=== PATIENT | male | born 1995 | race Caucasian/White ===

== ENCOUNTER 2022-12-22 08:17 | Emergency (ER) | payer OTHER, SELFPAY ==
[2022-12-22 08:30] VITALS: BP 116/75; PULSE 84; RESP 16; TEMP 36.8; O2SAT 99
--- NOTE | 2022-12-22 08:42 | ED.URI ---
HPI - URI/Sore Throat General Chief Complaint: Upper Respiratory Infection Stated Complaint: Sore Throat,Lt Ear Irritation,Congestion Time Seen by Provider: 12/22/22 08:33 Source: patient Mode of arrival: ambulatory Limitations: no limitations History of Present Illness HPI Narrative: Patient presents today with 2 day history of sore throat and nasal congestion with a left ear congestion since last night and slight cough. States sore throat has been improving since onset. Currently rates his pain 3/10. He has been taking Claritin for his seasonal allergies and Mucinex for his current symptoms without relief. States his seasonal allergies have never been, ?this bad. ? Denies shortness of breath or difficulty swallowing. Related Data Home Medications Medication Instructions Recorded Confirmed loratadine 10 mg tablet (Claritin) 10 mg PO DAILY 12/22/22 12/22/22 Allergies Allergy/AdvReac Type Severity Reaction Status Date / Time No Known Allergies Allergy Verified 12/22/22 08:25 Review of Systems Review of Systems: CONSTITUTIONAL: Denies body aches, fever, chills, or sweats. EYES: Denies visual changes, redness, or discharge. ENT: Denies rhinorrhea. + sore throat, congestion, left ear pressure CARDIOVASCULAR: Denies chest pain, palpitations, or edema. RESPIRATORY: Denies dyspnea.+ slight cough GASTROINTESTINAL: Denies abdominal pain, nausea, vomiting, or diarrhea. GENITOURINARY: Denies dysuria or hematuria. SKIN: Denies rash, itching, or wounds. MUSCULOSKELETAL: Denies back pain, joint pain, or myalgia. NEUROLOGIC: Denies headache, numbness, tingling, or weakness. PSYCH: Denies depression or anxiety. [facility] Past Medical History Medical History Seasonal allergies Comments At time of signature, I have reviewed and agree with nursing past medical, surgical, social and family history unless otherwise noted. Please see nursing chart for further information. There is no relevant family history pertinent to the presenting complaint Exam Narrative: GENERAL: Well-appearing, well-nourished, and in no acute distress. HEAD: Normocephalic, atraumatic. EYES: EOMI. No redness or drainage. Conjunctivae normal. ENT: Mucous membranes pink and moist. Nares mild congested. No rhinorrhea. Left TM is slightly erythematous. Fluid is clear without bulging. Right TM normal. Bilateral canals normal.. Tonsils slightly swollen. Copious green postnasal drainage. Uvula midline. NECK: Normal AROM. Supple. No lymphadenopathy. CHEST: No respiratory distress. Clear to auscultation. HEART: Regular rate and rhythm. No murmur appreciated. Normal peripheral pulses. EXTREMITIES: Normal range of motion. No edema. SKIN: Warm, dry, no rash. Capillary refill normal. Normal skin turgor. NEURO: No focal deficits. Alert and oriented x3. Gait steady. PSYCH: Normal affect. No signs of depression or anxiety. Course Course Level of Care: Express Care Visit Vital Signs Vital signs: Vital Signs Temperature 98.3 F 12/22/22 08:30 Pulse Rate 84 12/22/22 08:30 Respiratory Rate 16 12/22/22 08:30 Blood Pressure 116/75 12/22/22 08:30 Pulse Oximetry 99 12/22/22 08:30 Oxygen Delivery Room Air 12/22/22 08:30 Temperature 98.3 F 12/22/22 08:30 Pulse Rate 84 12/22/22 08:30 Respiratory Rate 16 12/22/22 08:30 Blood Pressure 116/75 12/22/22 08:30 Pulse Oximetry 99 12/22/22 08:30 Oxygen Delivery Room Air 12/22/22 08:30 Reviewed MDM - URI/Sore Throat MDM Narrative Medical decision making narrative: Symptoms are likely due to seasonal allergies. Rapid strep negative. No prescription medications indicated at this time. Anticipatory guidance given. Differential Diagnosis Differential diagnosis: Likely upper respiratory infection, otitis media, sinusitis, viral infection, bronchitis, pharyngitis and other (Strep throat, seasonal allergies) Lab Data
== END 2022-12-22 08:52 | disposition home or self-care (01) ==
PROVIDERS: Emergency Provider Nurse Practitioner; PCP Student in an Organized Health Care Education/Training Program
DX: J30.2 Other seasonal allergic rhinitis (principal); Z86.16 Personal history of COVID-19
CPT/HCPCS: 87081; 87880; 99213; G0463